=== PATIENT | male | born 1960 | race Caucasian/White ===

== ENCOUNTER 2018-07-17 15:57 | Emergency (ER) | payer BC ==
[2018-07-17 16:19] VITALS: BP 128/72
--- NOTE | 2018-07-17 17:01 | ED ---
Throat Pain/Nasal Congestion - HPI Summary HPI Summary: pt presents for evaluation of his possible sinusitis. he states that he has been ill for 9 days. he states that he has had subjective fever and chills. he states that he usually gets congestion and it is gone in a couple of days. he states this is lingering. he denies any other sick contacts. - History of Current Complaint Chief Complaint: UCGeneralIllness Hx Obtained From: Patient Onset/Duration: Lasting Days - 9 Severity: Mild - Allergies/Home Medications Allergies/Adverse Reactions: Allergies Allergy/AdvReac Type Severity Reaction Status Date / Time Penicillins Allergy Unknown does not Verified 07/17/18 16:20 know reaction Home Medications: Home Medications Apixaban* [Eliquis*] 5 mg PO BID 07/17/18 [History Confirmed 07/17/18] Atorvastatin* [Lipitor*] 5 mg PO 1700 07/17/18 [History Confirmed 07/17/18] PMH/Surg Hx/FS Hx/Imm Hx Previously Healthy: Yes Neurological History: Denies: Other Neuro Impairments/Disorders - pain in right buttocks and into right foot - Surgical History Surgery Procedure, Year, and Place: reattached retina/right Infectious Disease History: No Infectious Disease History: Denies: Traveled Outside the [place] in Last 30 Days - Social History Alcohol Use: Weekly Alcohol Amount: twice a week Substance Use Type: Reports: None Smoking Status (MU): Never Smoked Tobacco Review of Systems Constitutional: Negative Eyes: Negative Positive: Nasal Discharge, Other - pain to face Cardiovascular: Negative Respiratory: Negative Gastrointestinal: Negative Genitourinary: Negative Musculoskeletal: Negative Skin: Negative Positive: Headache - mild Psychological: Normal All Other Systems Reviewed And Are Negative: No Physical Exam Triage Information Reviewed: Yes Vital Signs On Initial Exam: Initial Vitals Temp Pulse Resp BP Pulse Ox 98.9 F 59 14 128/72 100 07/17/18 16:15 07/17/18 16:15 07/17/18 16:15 07/17/18 16:15 07/17/18 16:15 Vital Signs Reviewed: Yes Appearance: Positive: Well-Appearing, No Pain Distress, Well-Nourished Skin: Positive: Warm, Dry Head/Face: Positive: Other - mild tenderness to maxillary sinuses Eyes: Positive: Normal, EOMI, KYLE ENT: Positive: Normal ENT inspection, Hearing grossly normal, Pharynx normal Neck: Positive: Supple, Nontender Respiratory/Lung Sounds: Positive: Clear to Auscultation, Breath Sounds Present Cardiovascular: Positive: Normal, RRR Abdomen Description: Positive: Nontender, Soft Bowel Sounds: Positive: Present Musculoskeletal: Positive: Normal, Strength/ROM Intact Neurological: Positive: Normal Psychiatric: Positive: Normal AVPU Assessment: Alert Diagnostics - Vital Signs Vital Signs Temp Pulse Resp BP Pulse Ox 07/17/18 16:15 98.9 F 59 14 128/72 100 - Laboratory Lab Statement: Any lab studies that have been ordered have been reviewed, and results considered in the medical decision making process. EENT Course/Dx - Diagnoses Provider Diagnoses: Sinusitis Discharge - Sign-Out/Discharge Documenting (check all that apply): Patient Departure All imaging exams completed and their final reports reviewed: No Studies - Discharge Plan Condition: Stable Disposition: HOME Prescriptions: Azithromycin TAB* [Zithromax TAB (Z-CARLOS) 250 mg #6 tabs] 2 tab PO .TODAY, THEN 1 DAILY #1 carlos Patient Education Materials: Sinusitis (ED) Referrals: Denise Negrete MD [Primary Care Provider] - Additional Instructions: return if worse or any new symptoms. take tylenol and motrin for pain. take the antibiotic as instructed. - Billing Disposition and Condition Condition: STABLE Disposition: Home
== END 2018-07-17 17:08 | disposition home or self-care (01) ==
LOC: UCCORT 15:57
DX: J32.9 Chronic sinusitis, unspecified (principal); Z88.0 Allergy status to penicillin
CPT/HCPCS: 99202; G0463